=== PATIENT | female | born 1970 | race Asian ===

== ENCOUNTER 2023-10-31 04:23 | Day surgery (SDC) | payer BC ==
[2023-10-25 14:13] VITALS: BMI 23.3
[2023-10-31 08:34] VITALS: TEMP 98
[2023-10-31 08:44] VITALS: RESP 18
[2023-10-31 09:32] VITALS: BP 93/66; PULSE 64
== END 2023-10-31 09:32 | disposition home or self-care (01) ==
LOC: JASU-ENDO 04:23
PROVIDERS: ATTEND Internal Medicine Gastroenterology
PROC: 0DBN8ZX Excision of Sigmoid Colon, Via Natural or Artificial Opening Endoscopic, Diagnostic (ICD-10-PCS; principal; 2023-10-31 08:00)
DX: Z12.11 Encounter for screening for malignant neoplasm of colon (principal); D12.5 Benign neoplasm of sigmoid colon; Z86.010 Personal history of colon polyps
CPT/HCPCS: 88305-TC